=== PATIENT | male | born 1990 | race Caucasian/White ===

== ENCOUNTER 2019-01-26 20:33 | Emergency (ER) | payer SELFPAY ==
[~2019-01-26] VITALS: Ht 170.2 cm; Wt 82.0 kg
[2019-01-26] MEDS ORDERED: HYDROCODONE/ACETAMINOPHEN 5/325MG TABLET PO NR (22:45)
[2019-01-26 22:59] VITALS: BP 148/75
== END 2019-01-27 00:14 | disposition home or self-care (01) ==
LOC: ER 20:33
DX: M25.531 Pain in right wrist (principal); M79.641 Pain in right hand
CPT/HCPCS: 73110; 73130; 99283; A4565